=== PATIENT | male | born 1940 | race Caucasian/White ===

== ENCOUNTER → 2018-06-18 | Outpatient (CLI) | payer MEDICARE, OTHER ==
[~2018-06-18] MED LIST: SINCALIDE (KINEVAC) 5 MCG ONE
== END | disposition home or self-care (01) ==
LOC: PETCFH 09:43
PROVIDERS: ATTEND Nurse Practitioner Primary Care
DX: K80.20 Calculus of gallbladder without cholecystitis without obstruction (principal); E11.65 Type 2 diabetes mellitus with hyperglycemia; E03.9 Hypothyroidism, unspecified; E55.9 Vitamin D deficiency, unspecified; I10 Essential (primary) hypertension
CPT/HCPCS: 78227; A9537; J2805